=== PATIENT | female | born 1955 | race Two or more races ===

== ENCOUNTER 2024-08-11 11:21 | Emergency (ER) | payer OTHER ==
[~2024-08-11] VITALS: Ht 170.2 cm; Wt 89.8 kg
[2024-08-11] MEDS ORDERED: KETOROLAC TROMETHAMINE 30 MG VIAL IU ONE (14:00)
[2024-08-11] MEDS ORDERED: FAMOtidine 10 MG/ML (4ML VIAL) IV ONE (14:00)
[2024-08-11] MEDS ORDERED: KETOROLAC TROMETHAMINE 30 MG VIAL ONE (14:30)
[2024-08-11] MEDS ORDERED: FAMOTIDINE/PF 20 MG/2 ML VIAL ONE (14:30)
[2024-08-11 14:42] LABS: HEMOGLOBIN 12.2 g/dL (12.0-15.00); MEAN CELL VOLUME 85.8 fL (80.00-100.00); MEAN CORPUSCULAR HGB CONC 33.8 g/dl (32.0-36.0); PLATELET COUNT 180 K/uL (150-450); RED BLOOD COUNT 4.19 M/uL (4.00-6.00)
[2024-08-11 15:05] LABS: ALBUMIN 3.6 gm/dL (3.4-5.0); BILIRUBIN TOTAL 0.51 mg/dL (0.3-1.2); CALCIUM 9.9 mg/dL (8.5-10.1); CREATININE SERUM 0.75 mg/dL (0.55-1.02); GFR 76.84; GLOBULINA 4.1 G/DL (2.4-3.5); INR 1.01; PARTIAL THROMBOPLASTIN TIME 24.8 SECONDS (22.0-34.0); POTASSIUM 3.79 mEq/L (3.5-5.1); TOTAL PROTEIN 7.7 gm/dL (6.4-8.2)
[2024-08-11 15:25] LABS: PH,URINE 8.5 (5.0-8.0); URINE APPEARANCE Clear; URINE BILIRRUBIN Negative (NEGATIVE); URINE BLOOD Negative; URINE COLOR Yellow; URINE GLUCOSE Negative (NEGATIVE); URINE KETONE 15 (NEGATIVE); URINE LEUKOCYTE Negative; URINE NITRATE Negative; URINE PROTEIN 30 (NEGATIVE); URINE UROBILINOGEN 0.2 E.U./dl
[2024-08-11 15:29] LABS: URINE BACTERIA 17.1 uL (0.0-1933); URINE EPITHELIAL CELLS 5.2 uL (0.0-38.8); URINE RBC 19.7 uL (0.0-20.8); URINE WBC 7.4 uL (0.0-23.2)
[2024-08-11 15:43] LABS: URINE CAST 0.58 uL (0.0-1.40)
[2024-08-11] MEDS ORDERED: PEPCID AC20 MG PO (16:41)
[2024-08-11] MEDS ORDERED: DICY20TA PO (16:41)
[2024-08-11] MEDS ORDERED: ZOFRAN8 MG PO (16:41)
== END 2024-08-11 18:52 | disposition home or self-care (01) ==
LOC: EDBD 11:24 → ER 11:24
PROVIDERS: General Practice
DX: R10.9 Unspecified abdominal pain (principal); K44.9 Diaphragmatic hernia without obstruction or gangrene; R18.8 Other ascites; K52.89 Other specified noninfective gastroenteritis and colitis
CPT/HCPCS: 36415; 71045; 74177; 93005; 96365; 99284; J1885; J3490; Q9965